=== PATIENT | female | born 1940 | race African-American/Black ===

== ENCOUNTER 2021-11-18 10:59 | Inpatient (IN) | payer OTHER ==
[~2021-11-18] VITALS: Ht 152.4 cm; Wt 85.3 kg
[2021-11-18] VITALS (22 sets, daily range): BP systolic 75–147; BP diastolic 21–119
--- NOTE | ~2021-11-18 | EMS ---
[facility] [address] [place] [address] EMS Patient Care Report Name: TERI OSEI Room #: 238-P ADM IN M.R.#: [id number] Admission: 11/18/21 Attend Phys: Jamshid Chapin MD Discharge: Date of : 38 Report #: [id number] THIS REPORT FOR: //name// Report Transmitted: 11/19/2021 11:11 EMS Care Summary [place], [place]/[facility] Incident [id number] @ 11/18/2021 10:38 Incident Location [address] [place] [address] DIALYSIS Patient TERI OSEI Female, 81 Years 1940 Patient Address [address] [place] [id number] Patient History Chronic Obstructive Pulmonary Disease (COPD),End Stage Renal Disease (ESRD),TIA,Atrial Fibrillation,Hypotension,Dialysis,Type 2 Diabetes, Patient Allergies No known allergies, Patient Medications Other, Chief Complaint LOC Change Disposition Transported [place] Dispatch Reason Unconscious/Fainting Transported To [facility] Narrative Dialysis Nurse stated Pt was finishing her dialysis when they found Pt to be unresponsive and only would respond to pain when attempted to wake up. Nurse [facility] [address] [place] [address] EMS Patient Care Report Name: TERI OSEI Room #: 238-P ADM IN Sena#: [id number] Admission: 11/18/21 Attend Phys: Jamshid Chapin MD Discharge: Date of : 39 Report #: [id number] stated Pt is normally a GCS 15 when she started her dialysis tx with no unusual incidents or large amounts of fluids taking off of Pt and Pt was with her normal blood pressure up to the point were she was found to be unresponsive. Nurse stated she gave Pt 3 fluids bolus prior to EMS arrival and Pt had no change in her blood pressure noted post fluids. Pt is unresponsive and a GCS 08 Pt found sitting in chair in dialysis center pale , diaphoretic, unresponsive hypotensive and a GCS 08 when evaluated by EMS. Pt is with a very strong odor coming from Pt and when EMS moved Pt Pt was found to be in a large pile of dark black stool and Pt is with a very weak pulses and delayed cap refills noted with low pulse ox @ 68% on room air. Pt placed in shock position during transport to ER. Pt had no changes noted during transport to ER and received by RN and Edmond in ER. Initial Vitals @10:47P: 107,R: 18,BP: 89/57,Pain: 0/10,GCS: 8,Glucose: 118,SpO2: 68,Revised Trauma: 9, @10:53P: 88,R: 16,BP: 85/49,Pain: 0/10,GCS: 9,SpO2: 89,Revised Trauma: 10,PR Suspected: false @10:50P: 70,R: 18,BP: 94/57,Pain: 0/10,GCS: 9,SpO2: 96,Revised Trauma: 11,PR Suspected: false Assessments @10:45MENTAL:Unresponsive,SKIN:Cold,Pale,Diaphoresis,HEENT:Eyes: Left Pupil: 5-mm,Eyes: Right Pupil: 5-mm,Head/Face: No Abnormalities,Neck/Airway: No Abnormalities,LUNG SOUNDS:Left Lower: Other,Right Lower: Distension,Left Lower: Distension,Right Lower: Other,Right Upper: Other,Right Upper: Distension,Left Upper: Other,Left Upper: Distension,General: Other,ABDOMEN:Left Lower: Other,Right Lower: Distension,Left Lower: Distension,Right Lower: Other,Right Upper: Other,Right Upper: Distension,Left Upper: Other,Left Upper: Distension,General: Other,PELVIS//GI:Pelvis Other,Incontinence,Rectal Bleeding,EXTREMITIES:Capillary Refill: Left Upper: 4 Sec,Left Arm: No Abnormalities,Right Arm: No Abnormalities,Left Leg: No Abnormalities,Right Leg: No Abnormalities,PULSE:Radial: 1+ Thready,NEURO:No Abnormalities,@10:54MENTAL:Unresponsive,SKIN:Cold,Diaphoresis,Pale,HEENT:Head/Fa ce: No Abnormalities,Neck/Airway: No Abnormalities,LUNG SOUNDS:General: Other,Left Upper: Distension,Left Upper: Other,Right Upper: Other,Right Upper: Distension,Left Lower: Distension,Left Lower: Other,Right Lower: Distension,Right Lower: Other,ABDOMEN:General: Other,Left Upper: Distension,Left Upper: Other,Right Upper: Other,Right Upper: Distension,Left Lower: Distension,Left Lower: Other,Right Lower: Distension,Right Lower: Other,PELVIS//GI:Incontinence,Rectal Bleeding,EXTREMITIES:Left Arm: Other,Right Arm: Other,Right Leg: Other,Left Leg: Other,Capillary Refill: Right Upper: 4 Sec,PULSE:Radial: 1+ Thready,NEURO:No Abnormalities, [facility] [address] [place] [address] EMS Patient Care Report Name: TERI OSEI Room #: 238-P [facility] IN Sena#: [id number] Admission: 11/18/21 Attend Phys: Jamshid Chapin MD Discharge: Date of : 39 Report #: [id number] Impression Gastrointestinal hemorrhage Procedures @10:45 ALS Assessment Response: UnchangedSucceeded @10:47 Oxygen FlowRate: 15 Device: Non Re-breather Mask (NRB) Response: ImprovedSucceeded @10:48 3-Lead ECG Response: UnchangedSucceeded @10:50 General Comments Response: Improved @PTAIV Bolus - Normal Saline (.9% NaCl) 1500cc (18 ga) Site: Forearm-Left Response: UnchangedSucceeded Timeline SERVICE REPRESENTATIVE,IV Bolus - Normal Saline (.9% NaCl) 1500cc 18 ga Site: Forearm-Left,Response: UnchangedSucceeded, 10:37,Call Received 10:37,Dispatch Notified 10:38,Dispatched 10:39,En Route 10:43,On Scene 10:45,At Patient 10:45,ALS Assessment,Response: UnchangedSucceeded, 10:47,Oxygen FlowRate: 15 Device: Non Re-breather Mask (NRB) Response: ImprovedSucceeded, 10:47,BP: 89/57 M,PULSE: 107,RR: 18 R,SPO2: 68 Ox,ETCO2: ,B,PAIN: 0,GCS: 8, 10:48,3-Lead ECG,Response: UnchangedSucceeded, 10:50,General Comments,Response: Improved 10:50,BP: 94/57 M,PULSE: 70,RR: 18 R,SPO2: 96 Ox,ETCO2: ,BG: ,PAIN: 0,GCS: 9, 10:52,Depart Scene 10:53,BP: 85/49 M,PULSE: 88,RR: 16 R,SPO2: 89 Ox,ETCO2: ,BG: ,PAIN: 0,GCS: 9, 10:55,At Destination 11:10,Call Closed Disclaimer v1.1 Copyright 2021 [employer] This EMS Care Summary contains data elements from the applicable legal record (which may be displayed differently). It is designed to provide pertinent information for the following purposes: continuity of care, clinical quality, and state data reporting. The complete legal record is available to ED staff and administrators of the receiving hospital in [employer] Patient Tracker. All data is provided "as is."
[~2021-11-18 10:59] MED LIST: ADULT LOW DOSE81 MG PO; ALENDRONATE SOD70 MG PO; ASPIR 8181 MG PO; BISACODYL SUPP10 MG RECTAL; COLACE100 MG PO; FENTANYL PA12 MCG/HR TP; GENTLE LAXATIVE5 M1 PO; HYDROCODONE-AP1 EAC6 PO; LASIX 80 MG TAB80 MG PO; MIDODRINE HCL 55 M1; MIDODRINE HCL 55 M1 PO; MILK OF MA2400 MG/10 PO; MIRALAX17 GM PO; NEPHRO-VITE TA0.8 MG PO; NEURONTIN100 MG PO; NORCO 5-325 TA1 EACH PO; PERCOCET PO; RENA-VITE RX T1 EACH PO; ROBAXIN 750 MG750 M1 PO; ROBITUSSIN DM118 ML PO; TRAMADOL 50 MG50 MG PO; TUMS PO; TYLENOL325 MG PO; VITAMIN D1000 UNI1 PO; ZANAFLEX2 MG PO; ZANAFLEX4 MG PO; ZOCOR20 MG PO
[2021-11-18 11:56] LABS: EOSINOPHILS 0.1 % (0.0-3.0); MONOCYTES 8.7 % (1.0-8.0); RDW 15.9 % (10.5-14.5)
[2021-11-18 11:58] LABS: ABSOLUTE NEUTROPHILS 4.4 thou/uL (1.4-8.2); BASOPHILS 0.2 % (0.0-2.0); LYMPHOCYTES 7.7 % (24.0-44.0); MCH 34.1 pg (26.0-34.0); MCHC 33.5 g/dL (28.0-37.0); MCV 101.5 fL (80.0-100.0); PLATELET COUNT 241 thou/uL (150-400); POLYS 83.3 % (36.0-66.0); RBC 1.27 mil/uL (4.20-5.00); WBC 5.6 thou/uL (4.0-11.0)
[2021-11-18 12:09] LABS: CREATININE 1.5 mg/dL (0.6-1.0); POTASSIUM 3.6 mmol/L (3.5-5.1)
[2021-11-18 12:16] LABS: ALBUMIN 2.5 g/dL (3.4-5.0); TOTAL BILIRUBIN 0.3 mg/dL (0.2-1.0); TOTAL PROTEIN 5.6 g/dL (6.4-8.2)
[2021-11-18 12:34] LABS: APTT 54.4 Seconds (24.5-32.8); PROTIME 72.2 Seconds (10.5-12.1)
[2021-11-18 12:42] LABS: HEMATOCRIT 12.9 % (37.0-47.0); HEMOGLOBIN 4.3 gm/dL (12.0-15.0)
[2021-11-18 13:05] LABS: INR 7.28
--- NOTE | 2021-11-18 15:46 | NUR ---
PT UNABLE TO TRANSPORT TO CT R/T EMERGENT NEED FOR BLOOD & FFP TRANSFUSION. CT STAFF AWARE OF EMERGENT NEED & SAFETY CONCERNS. PROVIDER AWARE OF SITUATION.
[2021-11-19] VITALS (184 sets, daily range): BP systolic 46–159; BP diastolic 11–99
[2021-11-19 00:23] LABS: HEMATOCRIT 21.3 % (37.0-47.0); MCHC 32.7 g/dL (28.0-37.0); RBC 2.25 mil/uL (4.20-5.00); RDW 18.1 % (10.5-14.5); WBC 14.6 thou/uL (4.0-11.0)
[2021-11-19 00:28] LABS: MCV 94.7 fL (80.0-100.0)
[2021-11-19 03:23] LABS: ABSOLUTE NEUTROPHILS 9.9 thou/uL (1.4-8.2); BASOPHILS 0.7 % (0.0-2.0); EOSINOPHILS 0.3 % (0.0-3.0); HEMOGLOBIN 6.9 gm/dL (12.0-15.0); MCH 30.7 pg (26.0-34.0); MCHC 32.6 g/dL (28.0-37.0); MCV 94.1 fL (80.0-100.0); MONOCYTES 11.7 % (1.0-8.0); PLATELET COUNT 245 thou/uL (150-400); POLYS 77.3 % (36.0-66.0); RBC 2.23 mil/uL (4.20-5.00); RDW 18.3 % (10.5-14.5); WBC 12.8 thou/uL (4.0-11.0)
[2021-11-19 03:31] LABS: CALCIUM 7.1 mg/dL (8.5-10.1); MAGNESIUM 1.5 mg/dL (1.8-2.4); POTASSIUM 3.5 mmol/L (3.5-5.1)
[2021-11-19 04:03] LABS: PROTIME 13.7 Seconds (10.5-12.1)
[2021-11-19 04:43] LABS: INR 1.27
--- NOTE | 2021-11-19 08:43 | EKG ---
[place] [address] [facility] [place] [address] ELECTROCARDIOGRAM REPORT Name: TERI OSEI Room #: 238-P ADM IN M.R.#: [id number] Admission: 11/18/21 Attend Phys: Jamshid Chapin MD Discharge: Date of : 39 Report #: [id number] [facility] ED Test Date: 2021-11-18 Test Time: 11:20:04 Pat Name: TERI OSEI Department: Room: 238 Gender: F Public Weigher: miguelina : 1940 Requested By: Antony Obrien Order Number: [id number] MD: Darryl Rich Measurements Intervals [place] Rate: 92 P: [place]: QRS: -36 QRSD: 90 T: 214 QT: 378 QTc: 468 Interpretive Statements Suspect Atrial flutter/fibrillation Left axis deviation Borderline low voltage, extremity leads Compared to ECG 11/05/2014 16:39:24 Sinus rhythm no longer present Left ventricular hypertrophy no longer present Electronically Signed On 11-19-2021 8:43:16 NURSING SUPPORT WORKER by Darryl Rich [email or web address] <ELECTRONICALLY SIGNED> By: Darryl Rich MD, [facility] 11/19/21 0843 1120 1120 Darryl Rich MD, FAC /EPI
--- NOTE | 2021-11-19 09:08 | NUR ---
2100- called PUBLIC HEALTH AIDE about CT head order since I was told wanted a CT abd. She did not feel comfortable ordering the CT abd and CT head was not the primary concern as pt was A&Ox4. 0200- called PUBLIC HEALTH AIDE about adding another presser since pt was almost maxed on levo. She did not want to add another pressor. Also notified PUBLIC HEALTH AIDE that pt was labored breathing from fluid buildup. Around 0500, standard levophed was switced to concentrated levo. Pt went hypotensive when the medication swithced. Unknown if pharmacy placed concentrated levo instructional aide standard concentration med or if the levo was . Called PUBLIC HEALTH AIDE and she stated it was okay to go above max on levo and give 250ml bolus and add vassopressin. She also added 1uPRBC since pts hgb 6.6 and hypotensive. Called pharmacy to send up a new concentrated levo mixture. Once the new levo bag was hung, pt became normotensive. Pt also had a large dark blood bowel movement. Notified PUBLIC HEALTH AIDE. She could not come to bedside since she had already left for the night. Charge nurse at bedside with me from roughly [phone] until pt was more stable. Pt drowsy but orientated x4 the entire time she was hypotensive.
--- NOTE | 2021-11-19 09:51 | NUR ---
81-year-old female. HX of end-stage renal disease with hemodialysis on . fib anticoagulated with Coumadin, chronic hypertension, osteoarthritis, past TIA x3, wound ulcer . Been at [facility] recently. severe debility wheelchair-bound, recent COVID-19 viral pneumonia. Patient was brought to [facility] via EMS from dialysis center for being unresponsive. Currently patient alert, oriented, memory deficit noted, answers questions, son at bedside. Per records patient completed her dialysis session. Patient was noted to be severe hypertension with systolic blood pressure in the 50s. Patient was sent to the hospital for further evaluation recommendation. Patient reports that her INR was 9, was given vitamin K at the facility. ER work-up revealed hemoglobin 4.3 . Transfusion and FFP, rapid COVID negative. Patient reports she completed her 14 days quarantine at the facility. S/p COVID-19 vaccination. Discussed during unit rounds. Wound care visiting. Cm following up with laina saab to see if she is LTC or on the skilled rehab unit. Will cont. following as needed for dc needs.
--- NOTE | 2021-11-19 10:29 | NUR ---
WOUND CONSULT; ROUNDING WITH LUNA STAFFING RECRUITER AND LULU STAFFING RECRUITER. THE PATIENT HAS HAD SACRAL WOUND FOR SOME TIME. THE CURRENT ORDERS ARE FOR AQUACEL AG/SACRAL FOAM. CURRENTLY THIS IS NOT POSSIBLE DUE TO THE LIQUID/TARRY STOOL RELATED TO A GI BLEED. I DISCUSSED THIS WITH LUNA/LULU AND IT IS OK FOR NOW TO USE BARRIER CREAM TO THE SACRUM REGIONS TO PROTECT THE SKIN FROM THE LOOSE STOOL/BLEEDING. AFTER THIS EPISODE WE WILL RESUME AQUACEL AG/SACRAL FOAM. DISCUSSED WITH RADHA
--- NOTE | 2021-11-19 11:31 | NUR ---
ASSUMED CARE OF PT AT 0700 PT IS ACTIVELY BLEEDING AND HARD LARGE BLOODY/BLACK STOOL SON IN AT BEDSIDE THIS AM, HE HAS BEEN UPDATED BY GI UPPER TIER AND THEY WILL BE DOING AN EGD TODAY
[2021-11-19] MEDS ORDERED: TYLENOL325 MG PO (12:11)
[2021-11-19] MEDS ORDERED: ARTIFICIAL TEAR1510 OPHTHALMIC (12:11)
[2021-11-19] MEDS ORDERED: BENZONATATE200 MG PO (12:12)
[2021-11-19] MEDS ORDERED: CHILDREN'S ASPI81 MG PO (12:12)
[2021-11-19] MEDS ORDERED: VITAMIN C500 M1 PO (12:12)
[2021-11-19] MEDS ORDERED: COLACE100 MG PO (12:13)
[2021-11-19] MEDS ORDERED: CALCIUM CARBON500 MG PO (12:13)
[2021-11-19] MEDS ORDERED: FOSAMAX 70 MG T70 MG PO (12:14)
[2021-11-19] MEDS ORDERED: NEURONTIN100 MG PO (12:14)
[2021-11-19] MEDS ORDERED: IPRAT-ALBUT 0.5-3 ML INH (12:14)
[2021-11-19] MEDS ORDERED: IRON325 M1 PO (12:15)
[2021-11-19] MEDS ORDERED: MIRALAX17 GM PO ×2 (12:15→12:20)
[2021-11-19] MEDS ORDERED: MIDODRINE HCL 55 M1 PO (12:16)
[2021-11-19] MEDS ORDERED: NORCO5 PO (12:19)
[2021-11-19] MEDS ORDERED: NEPHRO-VITE TA0.8 MG PO (12:19)
[2021-11-19] MEDS ORDERED: PROCRIT10000 UNIT (12:21)
[2021-11-19] MEDS ORDERED: VITAMIN D-40010 MCG PO (12:23)
[2021-11-19] MEDS ORDERED: ZOCOR 20 MG TAB20 M1 PO (12:23)
[2021-11-19 15:35] LABS: HEMATOCRIT 19.3 % (37.0-47.0); HEMOGLOBIN 6.3 gm/dL (12.0-15.0)
[2021-11-19 20:06] LABS: HEMATOCRIT 27.9 % (37.0-47.0); HEMOGLOBIN 9.1 gm/dL (12.0-15.0)
[2021-11-20] VITALS (50 sets, daily range): BP systolic 69–160; BP diastolic 31–111
--- NOTE | 2021-11-20 09:53 | NUR ---
ASSUMED CARE OF PT AT 0700 PT IS CURRENTLY RECIEVING DIALYSIS PT DID NOT HAVE ANYMORE TARRY STOOLS OVERNIGHT AND I WAS ABLE TO TURN OFF ONE PRESSOR THIS MORNING DR. SMYTH AND THE ONLINE MARKETING DIRECTOR FOR GI BOTH AT BEDSIDE THIS MORNING, NO NEW ORDERS GIVEN
--- NOTE | 2021-11-20 11:17 | NUR ---
Discuss during unit rounds and los. Possible able to move out of the ICU today when a bed is available. If, when she is medically stable and ready [facility] Call Jada with [facility] # [phone], fax dc orders to [phone]. Send chart copy with her. Bedside nurse to call report to [phone]. [facility] will set up transportation for dc.
[2021-11-21] VITALS (91 sets, daily range): BP systolic 63–141; BP diastolic 34–92
[2021-11-21 03:53] LABS: CALCIUM 7.2 mg/dL (8.5-10.1); CREATININE 2.1 mg/dL (0.6-1.0); MAGNESIUM 1.6 mg/dL (1.8-2.4); POTASSIUM 3.2 mmol/L (3.5-5.1)
[2021-11-21 04:14] LABS: HEMATOCRIT 26.9 % (37.0-47.0); HEMOGLOBIN 8.8 gm/dL (12.0-15.0); MCH 31.7 pg (26.0-34.0); MCHC 32.7 g/dL (28.0-37.0); MCV 96.8 fL (80.0-100.0); RBC 2.78 mil/uL (4.20-5.00); RDW 17.5 % (10.5-14.5); WBC 11.6 thou/uL (4.0-11.0)
[2021-11-21 11:53] LABS: URINE BLOOD 3+ (Negative); URINE GLUCOSE-RANDOM* NEGATIVE (Negative); URINE KETONES 1+ (Negative); URINE PROTEIN (DIPSTICK) 3+ (Negative); URINE UROBILINOGEN 0.2 E.U./dl (0.2-1.0)
[2021-11-21 11:55] LABS: URINE LEUKOCYTES-REFLEX 3+ (Negative); URINE NITRITE-REFLEX POSITIVE (Negative)
[2021-11-21 11:56] LABS: URINE CLARITY TURBID; URINE COLOR LT RED
[2021-11-21 11:57] LABS: ICTOTEST (BILI CONFIRMATORY) ND (Negative)
[2021-11-21 11:58] LABS: URINE BILIRUBIN 2+ (Negative)
[2021-11-21 12:03] LABS: CASTS None Seen /LPF (None Seen); SQUAMOUS 0-3 Few /LPF (0-3); URINE WBC-REFLEX >25 Many /HPF (0-5)
[2021-11-21 12:04] LABS: BACTERIA-REFLEX >30 Many /HPF (None Seen); CRYSTALS None Seen /LPF (None Seen); WBC CLUMPS Packed (None Seen)
[2021-11-21 16:54] LABS: MAGNESIUM 1.9 mg/dL (1.8-2.4); POTASSIUM 3.7 mmol/L (3.5-5.1)
--- NOTE | 2021-11-21 19:34 | NUR ---
PATIENT NOT PROGRESSING TOWARDS THE PLAN OF CARE EVIDENCED BY POSSIBLE NEW INFECTION AND INFECTIOUS DISEASE CONSULT.
[2021-11-22] VITALS (73 sets, daily range): BP systolic 75–146; BP diastolic 29–75
--- NOTE | 2021-11-22 05:06 | HC ---
[facility] [place] [address] CONSULTATION Name: TERI OSEI Room #: 238-P ADM IN M.R.#: [id number] Admission: 11/18/21 Attend Phys: Jamshid Chapin MD Discharge: Date of : 39 Report #: [id number] THIS REPORT FOR: cc: Klever Duff MD, Christopher B. MD Barry, Joseph W. MD ~ DATE OF SERVICE: 11/20/2021 INFECTIOUS DISEASE CONSULTATION ATTENDING PHYSICIAN: Dr. Chapin. REASON FOR EVALUATION: Positive blood culture with polymicrobial growth. The patient with underlying end-stage renal disease, on dialysis. HISTORY OF PRESENT ILLNESS: Chart reviewed. The patient examined. This is an 81-year-old woman with history of end-stage renal disease, on dialysis, who was noted to be hypotensive during her scheduled visit and prompted further evaluation, was found to have a hemoglobin of 4.3. She did note she was quite weak. There was suspicion of gastrointestinal blood loss. She was transfused 3 units. She underwent upper endoscopy. Esophagus showed very large superficial ulcerations distal half, felt to be an explanation for the anemia and GI blood loss as per the initial evaluation. Blood cultures were collected now 11/08 with growth, which is polymicrobial including Enterococcus as well as bacillus species. It is not clear to her that she has had any fevers. She does admit to being cold all the time, which she attributes to her anemia. She states her appetite has been satisfactory in general prior to coming in. She does admit to some dyspnea and has required supplemental oxygen 1 liter per nasal cannula. She is perhaps mildly encephalopathic. ALLERGIES: None known. CURRENT MEDICINES: Include sucralfate, ipratropium/albuterol inhaler, albuterol, midodrine, p.r.n. ondansetron. MEDICINES AT HOME: Included alendronate, cholecalciferol, aspirin, midodrine, simvastatin, oxycodone, methocarbamol, calcium carbonate. PAST MEDICAL HISTORY: As described above, end-stage renal disease, on dialysis x8 years; history of spinal stenosis; lumbar decompression; chronic anemia; osteoarthritis; high cholesterol. SOCIAL HISTORY: Nonsmoker. No ethanol. No illicit drug use. FAMILY HISTORY: Noncontributory. [address] [address] CONSULTATION Name: TERI OSEI Room #: [address] [place] [address] IN .R.#: [id number] Admission: 11/18/21 Attend Phys: Jamshid Cahpin MD Discharge: Date of : 39 Report #: [id number] REVIEW OF SYSTEMS: As noted above. PHYSICAL EXAMINATION: GENERAL: She appears chronically ill, undernourished. She is pleasant, cooperative, mildly encephalopathic. VITAL SIGNS: Temperature 98.5, pulse 89, respirations 17, blood pressure 110/68. HEENT: Normocephalic. Extraocular muscles intact. NECK: Supple. Nasal cannula in place. LUNGS: Diminished breath sounds. HEART: Rate appears to be regular. SKIN: Warm. ABDOMEN: Soft, nontender. GENITOURINARY AND RECTAL: Deferred. LABORATORY DATA: Urinalysis greater than 25 white cells, packed wbc's with clumps, greater than 30 bacteria. CBC: White count 11.6, H and H 8.8 and 26.9, platelets 172. Electrolytes: Sodium 134, potassium 3.2, chloride 97, bicarbonate 28, anion gap of 11, BUN and creatinine 30 and 2.1. Procalcitonin 1.25. Chest x-ray: Diffuse changes on the perihilar regions. Blood cultures as described above, one out of two was positive for polymicrobial growth including Enterococcus faecium as well as bacillus species, suspect contaminant. Sed rate of 52. ASSESSMENT AND PLAN: Suspected complicated urinary tract infection. She does make a small amounts of the urine in spite of the dialysis revealing thus presumably a gram-negative etiology. Secondly, positive blood culture, I think this is likely a contaminant, would not necessarily go and treat that. Third, markedly depressed hemoglobin with evidence of gastrointestinal hemorrhage, which has been ideally addressed. Continue to monitor expectantly. Fourthly, sacral decubitus ulcer. Continue wound care as prescribed. She is quite tenuous at this point. Continue to monitor expectantly. At risk for additional complications. We will add incentive spirometry. Await additional studies. <ELECTRONICALLY SIGNED> By: Rohit Bullock MD 11/22/21 0506 1525 1937 Rohit Bullock MD /nt
[2021-11-22 05:58] LABS: HEMATOCRIT 26.5 % (37.0-47.0); HEMOGLOBIN 8.8 gm/dL (12.0-15.0); MCH 32.7 pg (26.0-34.0); MCHC 33.3 g/dL (28.0-37.0); MCV 98.1 fL (80.0-100.0); RBC 2.7 mil/uL (4.20-5.00); RDW 18.8 % (10.5-14.5); WBC 10.3 thou/uL (4.0-11.0)
--- NOTE | 2021-11-22 17:15 | NUR ---
PATIENT NOT PROGRESSING TOWARDS THE PLAN OF CARE EVIDENCED BY INCREASED NEED FOR LEVOPHED TO KEEP MAP>60. TITRATE LEVOPHED TO KEEP MAP>60, PER DR. GARCIA.
[2021-11-23] VITALS (59 sets, daily range): BP systolic 80–150; BP diastolic 11–90
--- NOTE | 2021-11-23 06:00 | NUR ---
PATIENT ALERT AND ORIENTED. PATIENT CONTINUES TO REQUIRE PRESSOR SUPPORT TO MAINTAIN MAP > 60. PATIENT MAINTAINING 02 SATS ABOVE 95% WITH 2L NC. DIALYSIS PATIENT AND ANURIC BUT DID HAVE BM REQUIRING PATIENT TO BE CLEANED UP. SEVERAL PRESSURE INJURIES ON BUTTOCKS WITH MEPILEX AND ZGUARD APPLIED TO PROTECT AREA. [id number] MAINTAINED. WILL CONTINUE TO MONITOR AND FOLLOW POC.
[2021-11-23 06:15] LABS: HEMATOCRIT 27.9 % (37.0-47.0); HEMOGLOBIN 9.2 gm/dL (12.0-15.0); MCH 32.6 pg (26.0-34.0); MCV 98.9 fL (80.0-100.0); RBC 2.82 mil/uL (4.20-5.00); RDW 18.9 % (10.5-14.5); WBC 10.6 thou/uL (4.0-11.0)
--- NOTE | 2021-11-23 09:07 | NUR ---
SEE OT VARIANCE
--- NOTE | 2021-11-23 13:18 | NUR ---
Discussed during los with the attending physician and during unit round. O2 per nasal cannula. Levophed for blood pressure. Cont. dialysis. [facility] Will cont. following as needed for dc needs. HBG 9.2
--- NOTE | 2021-11-23 17:06 | NUR ---
THIS PT HAS HD TX TODAY TAKING 2L OFF. THERE WERE NO COMPLICATIONS WITH DIALYSIS. IT IS NOTED THAT VSS, A/OX4, AND SHE REQUIRES LEVOPHED FOR HEMODYNAMIC STABILITY AT THIS TIME. THE LEVOPHED IS BEING TITRATED DOWN TO MAINTAIN A MAP OF 60.
[2021-11-24] VITALS (73 sets, daily range): BP systolic 65–128; BP diastolic 16–54
[2021-11-24 05:11] LABS: HEMATOCRIT 28.6 % (37.0-47.0); HEMOGLOBIN 9.3 gm/dL (12.0-15.0); MCH 31.7 pg (26.0-34.0); MCHC 32.6 g/dL (28.0-37.0); MCV 97.1 fL (80.0-100.0); RBC 2.95 mil/uL (4.20-5.00); RDW 19.3 % (10.5-14.5)
--- NOTE | 2021-11-24 06:09 | NUR ---
PATIENT SLOWLY PROGRESSING TOWARDS GOALS AND PLAN OF CARE. ABLE TO TITRATE LEVO DOWN A LITTLE BIT. PATIENT C/O LOWER EXTREMITY PAIN WITH REPOSITIONING. CLEANED SACRAL WOUNDS AND ADDED 2 MEDIUM-SIZE MEPILEX WITH ZINC PASTE TO AREA. WILL CONTINUE TO MONITOR.
[2021-11-24 10:13] LABS: HEMATOCRIT 27.3 % (37.0-47.0); HEMOGLOBIN 8.9 gm/dL (12.0-15.0)
[2021-11-24 10:22] LABS: CALCIUM 7.5 mg/dL (8.5-10.1); CREATININE 2.6 mg/dL (0.6-1.0)
[2021-11-24 10:25] LABS: POTASSIUM 2.8 mmol/L (3.5-5.1)
--- NOTE | 2021-11-24 10:49 | NUR ---
ASSUMED CARE OF PT AT 0700 PT IS ALERT AND ORIENTED AND ANSWERED ALL QUESTIONS APPROPRIATELY.
--- NOTE | 2021-11-24 14:57 | NUR ---
Verbal update provided to laina saab. Not ready dc today, she still requiring Levo gtt. O2 2L/nasal cannula. Diet puree with nectar thick liquids. Will cont following as needed.
--- NOTE | 2021-11-24 17:25 | EKG ---
[place] [address] [facility] [place] [address] ELECTROCARDIOGRAM REPORT Name: TERI OSEI Room #: 238-P ADM IN M.R.#: [id number] Admission: 11/18/21 Attend Phys: Jamshid Chapin MD Discharge: Date of : 39 Report #: [id number] [facility] Test Date: 2021-11-24 Test Time: 11:54:09 Pat Name: TERI OSEI Department: Room: 238 P Gender: F Jewel Stripper: STEPHANIE : 1940 Requested By: Nicolasa Li Order Number: [id number] MD: Andrzej Cunningham Measurements Intervals [place] Rate: 105 P: CT: QRS: -54 QRSD: 92 T: 216 QT: 370 QTc: 490 Interpretive Statements Atrial fibrillation Inferior infarct, old Nonspecific ST and T wave abnormality Compared to ECG 11/18/2021 11:20:04 ST and T wave abnormality is less prominent Electronically Signed On 11-24-2021 17:25:08 VENDING MANAGER by Andrzej Cunningham [email or web address] <ELECTRONICALLY SIGNED> By: Andrzej Cunningham MD, [facility] 11/24/21 1725 1154 1154 Andrzej Cunningham MD, FAC /EPI
[2021-11-25] VITALS (96 sets, daily range): BP systolic 80–143; BP diastolic 28–93
[2021-11-25 05:12] LABS: HEMATOCRIT 27.5 % (37.0-47.0); HEMOGLOBIN 9.1 gm/dL (12.0-15.0); MCH 32.3 pg (26.0-34.0); RBC 2.8 mil/uL (4.20-5.00); WBC 6.6 thou/uL (4.0-11.0)
[2021-11-25 07:08] LABS: HEP B SURFACE Ab(ANTI-HBS Non Reactive (()); HEPATITIS B SURFACE AG Negative (Negative)
[2021-11-25 10:57] LABS: HEMOGLOBIN 9.1 gm/dL (12.0-15.0); MCH 31.9 pg (26.0-34.0); MCHC 32.4 g/dL (28.0-37.0); MCV 98.6 fL (80.0-100.0); RBC 2.84 mil/uL (4.20-5.00); RDW 20.3 % (10.5-14.5); WBC 7.6 thou/uL (4.0-11.0)
[2021-11-25 11:13] LABS: CALCIUM 8.2 mg/dL (8.5-10.1); CREATININE 3.4 mg/dL (0.6-1.0); POTASSIUM 3.2 mmol/L (3.5-5.1)
--- NOTE | 2021-11-25 13:50 | 2DMMODE ---
[facility] [place] [address] 2 D/M-MODE ECHOCARDIOGRAM Name: TERI OSEI Room #: 238-P ADM IN M.R.#: [id number] Admission: 11/18/21 Attend Phys: Jamshid Chapin MD Discharge: Date of : 38 Report #: [id number] THIS REPORT FOR: cc: Klever Duff MD, Christopher B. MD Santiago, Patrick MD [facility] ~ ADDENDUM APPROVED REPORT Study performed: 11/25/2021 10:54:08 EXAM: Comprehensive 2D, Doppler, and color-flow Echocardiogram Patient Location: ICU Room #: 238 Status: routine BSA: 1.79 HR: 79 bpm BP: 110/92 mmHg Rhythm: Atrial Fibrillation Other Information Study Quality: Good Indications Atrial Fibrillation Hypertension/HDD 2D Dimensions IVSd: 7.90 (7-11mm) LVOT Diam: 17.23 (18-24mm) LVDd: 45.73 mm PWd: 9.30 (7-11mm) LVDs: 32.64 (25-40mm) Left Atrium: 41.44 (27-40mm) Aortic Root: 31.53 mm Volumes Left Atrial Volume (Systole) Single Plane 4CH: 59.21 mL Single Plane 2CH: 83.12 mL LA ESV Index: 44.00 mL/m2 Mitral Valve E/A Ratio: 1.0 MV Decel. Time: 307.88 ms MV E Max Manuel.: 1.08 m/s MV A Manuel.: 1.09 m/s [facility] [address] [address] 2 D/M-MODE ECHOCARDIOGRAM Name: TERI OSEI Room #: 238-P ADM IN M.Megha.#: [id number] Admission: 11/18/21 Attend Phys: Jamshid Chapin MD Discharge: Date of : 38 Report #: [id number] PHT: 89.29 ms Tricuspid Valve TR Peak Manuel.: 2.90 m/s TR Peak Gr.: 33.56 mmHg PA Pressure: 34.00 mmHg Left Ventricle The left ventricle is normal size. There is normal LV segmental wall motion. There is normal left ventricular wall thickness. The left ventricular systolic function is normal. The left ventricular ejection fraction is within the normal range. LVEF is 55-60%. This study is not technically sufficient to allow evaluation of the LV diastolic function. Right Ventricle The right ventricle is normal size. The right ventricular systolic function is normal. Atria Left atrium is dilated. Right atrium is dilated. Aortic Valve The aortic valve is normal in structure. No aortic regurgitation is present. There is no aortic valvular stenosis. Mitral Valve The mitral valve is normal in structure. Trace mitral regurgitation. No evidence of mitral valve stenosis. Tricuspid Valve The tricuspid valve is normal in structure. There is mild tricuspid regurgitation. Estimated PAP 34 mmHg plus the right atrial pressure. There is mild pulmonary hypertension. Pulmonic Valve The pulmonary valve is normal in structure. There is no pulmonic valvular regurgitation. Great Vessels The aortic root is normal in size. IVC is not well visualized. Pericardium There is no pericardial effusion. [facility] [address] [address] 2 D/M-MODE ECHOCARDIOGRAM Name: SEAWILLIAMSON J Room #: 238-P ADM IN M.R.#: [id number] Admission: 11/18/21 Attend Phys: Jamshid Chapin MD Discharge: Date of : 38 Report #: [id number] <Conclusion> Normal left ventricular size/wall thickness Ejection fraction 55-60% Normal right ventricular size/function Left atrium mildly dilated Aortic valve minimally calcified without stenosis Moderate mitral annular calcification Trace mitral valve insufficiency Mild tricuspid valve insufficiency Pulmonary systolic pressure estimated at 34 mmHg No pericardial effusion Normal aortic root size. <ELECTRONICALLY SIGNED> By: Darryl Rich MD, FACC 11/25/21 1350 1350 135 Darryl Rich MD, FACC /INF
[2021-11-26] VITALS (92 sets, daily range): BP systolic 66–153; BP diastolic 17–122
--- NOTE | 2021-11-26 10:28 | NUR ---
ASSUMED CARE OF PT AT 0700 DR. LIRIANO AT BEDSIDE THIS MORNIND AND STATED HE WANT THE PTS TITRATED OFF LEVO AND HE BELIEVES THAT WE ARE NOT GETTING AN ACCURATE BP DUE TO HER END STAGE RENAL DISEASE. DR. SALMERON AT BEDSIDE THIS MORNING AND WANTED MEDS STARTED FOR AFIB RATE CONTROL. HERON CARDIAC PA AT BEDSIDE THIS MORNING ALSO
--- NOTE | 2021-11-26 15:02 | NUR ---
RITCHIE faxed clinical/therapy updates to Mirna for review. RITCHIE updated Dora and Fede in admissions. Possible weekend discharge. Mirna will want to skill pt upon her return to the facility. Following to assist as needed with discharge planning.
[2021-11-26 17:10] LABS: HEMATOCRIT 29.2 % (37.0-47.0); HEMOGLOBIN 9.3 gm/dL (12.0-15.0); MCH 31.4 pg (26.0-34.0); MCHC 31.7 g/dL (28.0-37.0); MCV 99.1 fL (80.0-100.0); RBC 2.95 mil/uL (4.20-5.00); RDW 20.7 % (10.5-14.5); WBC 7.4 thou/uL (4.0-11.0)
[2021-11-26 17:20] LABS: CALCIUM 7.8 mg/dL (8.5-10.1); CREATININE 2.9 mg/dL (0.6-1.0)
[2021-11-26 17:37] LABS: POTASSIUM 2.9 mmol/L (3.5-5.1)
[2021-11-27] VITALS (50 sets, daily range): BP systolic 56–144; BP diastolic 18–94
--- NOTE | 2021-11-27 06:45 | NUR ---
ASSUME CARE 1900. PT/VITALS STABLE. DENIES ANY PAIN. POOR TOLERANCE TO ACTIVITY. A/O X 4/PLEASANT. NO DISTRESS NOTED THROUGH THE NIGHT. SA/PACs ON MONITOR WITH RATE CONROLLED. PT ON NEOSYN/BP TOLERATING WELL. SATS MID TO HIH 90s ON ROOM AIR. NOTED BM THIS AM/BROWN/LOOSE. NO BLOOD OR TARY STOOLS NOTED. ASSESSMENT CHARTED. PROGRESSING MODERATELY WITH POC. PLAN IS CONTINUE TO MONITOR AND MANAGE RENAL FUNCTION. PT IS MWF DIALYSIS. WILL. WILL CONTINUE TO MONITOR AND FOLLOW WITH POC.
[2021-11-27 08:52] LABS: CALCIUM 8.1 mg/dL (8.5-10.1); CREATININE 3.3 mg/dL (0.6-1.0); POTASSIUM 3.2 mmol/L (3.5-5.1)
--- NOTE | 2021-11-27 12:11 | NUR ---
Therapy evals on hold due to continued pressure support. If she is able to wean off, she will need new PT/OT eval orders for snf stay at [facility]. MWF dialysis. Transfer out of ICU once off pressure support. Will updated [facility] on Tuesday if dc ready. No weekend dc anticipated and the [facility] liason was updated.
--- NOTE | 2021-11-27 16:34 | PATH ---
[facility] [address] [place] [address] PATHOLOGY RPT PROCEDURE Name: TERI OSEI Kayy Room #: 238-P ADM IN M.R.#: [id number] Admission: 11/18/21 Date of : 38 Discharge: Report #: [id number] Path Case #: [id number] [facility] Accession Number: [id number] . 01 Material submitted: . esophagus - ESOPHAGEAL ULCER BIOPSY R/O CMV, HSC AND CANCER . 01 Clinical history: . GI BLEED, HYPOTENSION, ANEMIA, COAGULOPATHY ANEMIA EGD . 02 Diagnosis: Squamous mucosa (biopsy ulcer): - Mild chronic esophagitis. - Necrotic ulcer bed with fibrinopurulent exudate identified. LBQ 11/25/2021 1316 Local . 02 Comment: We do not identify overt signs of viral infection or fungus; however, we will undertake immunohistochemical studies for virus and PAS stain for fungus. These will be the subject of an addendum report. (TIFFANIE/jaspreet; 11/25/2021) . 02 Addendum: . *CMV on block A1: Negative *HSV1 on block A1: Negative *HSV2 on block A1: Negative PASF fungus on block A1: Negative . We conclude there is no evidence of viral infection or a fungal infection in the previous submitted biopsy: (RITCHIEK:valerie; 11/27/2021) . . *This test was developed and its performance characteristics determined by [facility]. It has not been cleared or approved by the U.S. Food and Drug Administration. The FDA has determined that such clearance or approval is not necessary. This test is used for clinical purposes. It should not be regarded as investigational or for research. This laboratory is certified under the Clinical Laboratory Improvement Amendments of 1988 (CLIA) as qualified to perform high complexity clinical laboratory testing. . . Professional services performed by [facility] at [address] [place] [address]. Technical services performed by [facility] at [address] [place] [address], [address] [address]. [address] [address] PATHOLOGY RPT PROCEDURE Name: TERI OSEI Room #: 238-P [facility] IN M.R.#: [id number] Admission: 11/18/21 Date of : 38 Discharge: Report #: [id number] Path Case #: [id number] LBQ/11/27/2021 Addendum Electronically Signed by Johnny Alvarez MD, Pathologist . 02 Electronically signed: . Johnny Alvarez MD, Pathologist NPI- [id number] . 01 Gross description: . The specimen is received in formalin, labeled "Brown, Potts, esophageal ulcer BX, rule out CMV, ZUÑIGA and CA". Received are multiple segments of pale humphrey tissue ranging in size from 0.1-0.4 cm in maximum dimensions. The specimen is entirely submitted in cassette A1. ([facility]; 11/20/2021) NRI/NRI 11/24/[id number] Local . 02 Pathologist provided ICD-10: K20.90, K22.10 . 02 CPT . 956876, 921844, [id number], [id number] Specimen Comment: A courtesy copy of this report has been sent to [phone], [phone] Specimen Comment: [id number], Specimen Comment: Report sent to , DR SINGH / DR CASTILLO Specimen Comment: A duplicate report has been generated due to demographic updates. Performed at: 01 [facility] [address] [id number] MD Caden Richmond MD Phone: [phone] Performed at: 02 [facility] [id number] [id number] MD Johnny Alvarez MD Phone: [phone]
--- NOTE | 2021-11-27 21:54 | NUR ---
REPORT CALLED TO Yamini ON [facility]. pT INCONTINENT OF A LARGE AMOUNT OF LIQUID STOOL. PERICARE PROVIDED AND PT TRANSFERRED TO [facility].
[2021-11-28 03:58] LABS: HEMATOCRIT 31.9 % (37.0-47.0); MCH 31.5 pg (26.0-34.0); MCHC 31.3 g/dL (28.0-37.0); MCV 100.7 fL (80.0-100.0); RBC 3.17 mil/uL (4.20-5.00); WBC 4.5 thou/uL (4.0-11.0)
--- NOTE | 2021-11-28 04:54 | NUR ---
RECEIVED CARE OF THIS PATIENT AT 2141 FROM ICU. PATIENT ALERT AND ORIENTED X4. REMAINS ON BEDREST. C/O PAIN, MED GIVEN. SLEPT MOST OF NIGHT.
[2021-11-28 06:49] VITALS: BP 111/44
[2021-11-28 07:50] VITALS: BP 99/43
[2021-11-28 11:46] VITALS: BP 85/38
--- NOTE | 2021-11-28 15:25 | NUR ---
PT ALERT AND ORIENTED. LOW BP. PROVIDER AWARE. PT ON MIDODRINE. NO CONCERNS AT THIS TIME. PT PROGRESSING WELL TOWARDS DISCHARGE GOAL.
[2021-11-28 16:32] VITALS: BP 92/34
[2021-11-28 19:51] VITALS: BP 86/34
--- NOTE | 2021-11-29 03:55 | NUR ---
Assumed pt care at 1900. No sign of distress noted in pt. Pt is alert and oriented. No sign of distress noted. Pt is stable. Fall precaution in place. Assessment completed and documented. No acute event through the night. Continue to monitor. No further needs at this time
[2021-11-29 05:13] VITALS: BP 96/40
[2021-11-29 07:30] VITALS: BP 99/42
[2021-11-29 11:05] VITALS: BP 75/35
[2021-11-29 11:43] VITALS: BP 96/34
[2021-11-29 15:03] VITALS: BP 88/37
--- NOTE | 2021-11-29 16:40 | NUR ---
ASSUMED PT CARE THIS MORNING. PT A&OX4 AND COMMUNICATING NEEDS APPROPRIATELY TO STAFF. PT DID NOT VOID THIS SHIFT. PT DID CONSUME OVER HALF OF EACH MEAL THIS SHIFT. PT HAD SOME BACK PAIN THIS MORNING. PAIN WAS RELIEVED WITH TYLENOL AND FREQUENT REPOSITIONING.
[2021-11-29 19:33] VITALS: BP 106/37
--- NOTE | 2021-11-30 03:45 | NUR ---
Assumed pt care at 1900. Pt is alert and oriented. No sign of distress noted. Pt is stable. Assessment completed and documented. Denies pain. Scheduled meds meds administered to pt. No acute event during the night. Continue to monitor. No further needs at this time.
[2021-11-30 05:08] VITALS: BP 116/47
[2021-11-30 07:55] VITALS: BP 104/40
[2021-11-30] MEDS ORDERED: MIDODRINE HCL 55 M1 PO (11:40)
[2021-11-30] MEDS ORDERED: DIGOXIN125 MCG PO (11:41)
[2021-11-30] MEDS ORDERED: CARAFATE 11 GM/10 M1 PO (11:43)
[2021-11-30] MEDS ORDERED: PROTONIX40 M4 PO (11:49)
[2021-11-30 11:50] VITALS: BP 110/51
--- NOTE | 2021-11-30 13:48 | NUR ---
CHART REVIEWED AND DISCUSSED WITH CARE TEAM. PT MEDCIALLY STABLE TO DISCHARGE THIS DAY FOLLWOWING DIALYSIS. CM SPOKE TO [facility] WHO INDICATED THEY ACCEPT AND HAVE BED AVAILABLE FOR HER UPON HER RETURN. PT CURRENTLY RECEIVING DIALYSIS AT THIS TIME. CHART COPIES. DISCHARGE ORDERS AND SUMMARY FAXED TO [facility] ALONG WITH [id number]. ALL PARTIES AWARE. TRANSPORTATION SCHEDULED TO ARRIVE VIA [facility] AT 1700. NO FURTHER CM INTERVENTIONS INDICATED AT THIS TIME.
[2021-11-30 14:45] VITALS: BP 130/71
[2021-11-30 15:45] VITALS: BP 106/69
== END 2021-11-30 17:54 | DRG 380 ==
LOC: ER 10:59 → EROBS 14:12 → ICU 14:12 → 2N 11-27 21:45
PROVIDERS: Emergency Medicine; Internal Medicine; Internal Medicine Nephrology; Nurse Practitioner; Nurse Practitioner Family; ADMIT Internal Medicine; ATTEND Internal Medicine
DX: K22.11 Ulcer of esophagus with bleeding (principal); L89.154 Pressure ulcer of sacral region, stage 4; N18.6 End stage renal disease; J96.01 Acute respiratory failure with hypoxia; E43 Unspecified severe protein-calorie malnutrition; R57.8 Other shock; I48.92 Unspecified atrial flutter; D62 Acute posthemorrhagic anemia; D68.9 Coagulation defect, unspecified; N39.0 Urinary tract infection, site not specified; I48.21 Permanent atrial fibrillation; R78.81 Bacteremia; M31.9 Necrotizing vasculopathy, unspecified; I12.0 Hypertensive chronic kidney disease with stage 5 chronic kidney disease or end stage renal disease; K25.4 Chronic or unspecified gastric ulcer with hemorrhage; Z20.822 Contact with and (suspected) exposure to COVID-19; E78.00 Pure hypercholesterolemia, unspecified; M19.90 Unspecified osteoarthritis, unspecified site; R53.81 Other malaise; D63.8 Anemia in other chronic diseases classified elsewhere; M54.50 Low back pain, unspecified; G89.4 Chronic pain syndrome; M48.00 Spinal stenosis, site unspecified; I95.89 Other hypotension; T45.515A Adverse effect of anticoagulants, initial encounter; E66.01 Morbid (severe) obesity due to excess calories; E87.6 Hypokalemia; B96.20 Unspecified Escherichia coli [E. coli] as the cause of diseases classified elsewhere; B95.2 Enterococcus as the cause of diseases classified elsewhere; Z79.01 Long term (current) use of anticoagulants; Z86.73 Personal history of transient ischemic attack (TIA), and cerebral infarction without residual deficits; Z68.36 Body mass index [BMI] 36.0-36.9, adult; Z79.891 Long term (current) use of opiate analgesic; Y92.89 Other specified places as the place of occurrence of the external cause
CPT/HCPCS: 10078; 10081; 32100; 62110; 62900; 85076